=== PATIENT | male | born 1985 | race African-American/Black ===

== ENCOUNTER 2016-07-21 19:54 | Emergency (ER) | payer OTHER ==
[2016-07-21 20:17] VITALS: BP 134/87
[2016-07-21] MEDS ORDERED: ACETAMINOPHEN 325 MG TABLET PO ONE (20:22)
--- NOTE | 2016-07-21 20:26 | ER Document Report ---
ED Medical Screen (RME) - General Chief Complaint: Cough Stated Complaint: COUGH Mode of Arrival: Ambulatory Information source: Patient Notes: 31 y/o M presents to ED c/o generalized body aches, productive cough, and fever over the last two days. I have greeted and performed a rapid initial assessment of this patient. A comprehensive ED assessment and evaluation of the patient, analysis of test results and completion of the medical decision making process will be conducted by additional ED providers. TRAVEL OUTSIDE OF THE [place] IN LAST 30 DAYS: No Past Medical History - Social History Chew tobacco use (# tins/day): No Frequency of alcohol use: Occasional Drug Abuse: Marijuana Renal/ Medical History: Denies: Hx Peritoneal Dialysis Physical Exam - Vital signs Vitals: Temp Pulse Resp BP Pulse Ox 103.0 F H 80 12 134/87 H 97 07/21/16 20:15 07/21/16 20:15 07/21/16 20:15 07/21/16 20:15 07/21/16 20:15 - General General appearance: Alert In distress: None - Respiratory Respiratory status: No respiratory distress Breath sounds: Normal Course - Vital Signs Vital signs: Temp Pulse Resp BP Pulse Ox 103.0 F H 80 12 134/87 H 97 07/21/16 20:15 07/21/16 20:15 07/21/16 20:15 07/21/16 20:15 07/21/16 20:15
--- NOTE | 2016-07-21 22:52 | ER Document Report ---
ED General - General Chief Complaint: Cough Stated Complaint: COUGH Mode of Arrival: Ambulatory Notes: Patient is a 31-year-old male who presents with complaint of cough and fever. Patient says he had cough for last 3 days. Some congestion. Says he is coughing up phlegm. He said there is a little bit of black stuff no phlegm but he suspects that is from smoking and has had that before. No blood in his sputum. No recent troubles of the country. He is homosexual. He says he was recently seen at the health [facility]. He said he goes to routinely just get checked for sexually transmitted diseases. He last week he was checked and his needing gonorrhea swabs came back negative. They did put him on azithromycin for sepsis ureter look a little bit red. Patient says he had no symptoms at the time and no pain. They also checked him for HIV is best return Monday for the results of his HIV test. He's never had HIV and does not suspect that it would be positive this time. Patient denies any other recent illnesses or infections. No other complaints at this time. TRAVEL OUTSIDE OF THE [place] IN LAST 30 DAYS: No - Related Data Allergies/Adverse Reactions: No Known Allergies Allergy (Unverified 07/21/16 20:23) Past Medical History - General Information source: Patient - Social History Smoking Status: Current Every Day Smoker Chew tobacco use (# tins/day): No Frequency of alcohol use: Occasional Drug Abuse: Marijuana Family History: Reviewed & Not Pertinent Patient has suicidal ideation: No Patient has homicidal ideation: No Renal/ Medical History: Denies: Hx Peritoneal Dialysis Review of Systems - Review of Systems Notes: My Normal Review Basic REVIEW OF SYSTEMS: CONSTITUTIONAL : Fever EENT: congestion CARDIOVASCULAR: Denies chest pain. RESPIRATORY: Cough GASTROINTESTINAL: Denies abdominal pain. Denies nausea, vomiting, or diarrhea. Denies constipation. Last BM: GENITOURINARY: Denies difficulty urinating, painful urination, burning, frequency, or blood in urine. MUSCULOSKELETAL: Denies neck or back pain or joint pain or swelling. SKIN: Denies rash or skin lesions. NEUROLOGICAL: Denies altered mental status or loss of consciousness. Denies headache. Denies weakness or paralysis or loss of use of either side. Denies problems with gait or speech. Denies sensory or motor loss. ALL OTHER SYSTEMS REVIEWED AND NEGATIVE. Physical Exam - Vital signs Vitals: Temp Pulse Resp BP Pulse Ox 103 F H 80 12 134/87 H 97 07/21/16 20:00 07/21/16 20:00 07/21/16 20:00 07/21/16 20:00 07/21/16 20:00 - Notes Notes: General Appearance: Well nourished, alert, cooperative, no acute distress, no obvious discomfort. Very well-appearing. Vitals: reviewed, See vital signs table. Head: no swelling or tenderness to the head Eyes: PERRL, EOMI, Conjuctiva clear Mouth: No decreasd moisture Throat: No tonsillar inflammation, No airway obstruction, No lymphadenopathy Ears: Normal appearing tympanic membranes Neck: Supple, no neck tenderness, No thyromegaly Lungs: No wheezing, No rales, No rhonci, No accessory muscle use, good air exchange bilaterally. Heart: Normal rate, Regular rythm, No murmur, no rub Abdomen: Normal BS, soft, No rigidity, No abdominal tenderness, No guarding, no rebound, no abdominal masses, no organomegaly Genital: Normal per appearing external genitalia. No redness or inflammation around the urethral meatus. Extremities: strength 5/5 in all extremities, good pulses in all extremities, no swelling or tenderness in the extremities, no edema. Skin: warm, dry, appropriate color, no rash Neuro: speech clear, oriented x 3, normal affect, responds appropriately to questions. Course - Vital Signs Vital signs: Temp Pulse Resp BP Pulse Ox 98.8 F 80 12 134/87 H 97 07/21/16 22:47 07/21/16 20:15 07/21/16 20:15 07/21/16 20:15 07/21/16 20:15 - Transfer of Care Notes: 07/22/16 06:56 She is fever completely resolved. He looks well. Chest x-ray is negative. Suspect probably has a viral illness causes fever cough and congestion. I do not think this is a. Do with sexually transmitted disease being that his recent STD testing was negative. Encourage him to follow up closely with the health Department on Monday for reevaluation also for the results of his HIV testing. I encourage and return to ER immediately if he has recurrent worsening fevers, difficulty breathing, or feels unwell. Patient agrees with plan and will be discharged home. Dictation of this chart was performed using voice recognition software; therefore, there may be some unintended grammatical errors. Discharge - Discharge Clinical Impression: Cough Fever Qualifiers: Fever type: unspecified Qualified Code(s): R50.9 - Fever, unspecified Condition: Good Disposition: HOME, SELF-CARE Additional Instructions: Please return to the ER immediately if you develop worsening fevers not responding to Tylenol, difficulty breathing, coughing up of blood, or feel that your symptoms are worsening. Please follow up with the Health department on your HIV test results.
== END 2016-07-21 23:10 | disposition home or self-care (01) ==
LOC: ER 19:54
DX: R05 Cough (principal); R50.9 Fever, unspecified; F17.200 Nicotine dependence, unspecified, uncomplicated
CPT/HCPCS: 71020; 87804; 99283

== ENCOUNTER 2017-06-29 12:29 | Emergency (ER) | payer BC, OTHER ==
--- NOTE | 2017-06-29 14:46 | ER Document Report ---
ED General - General Chief Complaint: Abdominal Pain Stated Complaint: ABDOMINAL PAIN Time Seen by Provider: 06/29/17 14:41 Notes: The patient is a 32-year-old male who presents with 3 months of suprapubic pain , bilateral flank pain and dysuria. He went to the health department 2 months ago and his HIV, gonorrhea and chlamydia tests were negative. However, he did not want to pay the $60 for his urinalysis. He is still having a burning sensation and has not had any new sexual partners. Denies testicular pain, penile discharge, lesions, fevers, hematuria, right lower quadrant abdominal pain, diarrhea, constipation, nausea or vomiting. TRAVEL OUTSIDE OF THE [place] IN LAST 30 DAYS: No - Related Data Allergies/Adverse Reactions: No Known Allergies Allergy (Verified 06/29/17 12:30) Past Medical History - General Information source: Patient - Social History Smoking Status: Current Every Day Smoker Frequency of alcohol use: Occasional Drug Abuse: Marijuana Family History: Reviewed & Not Pertinent Patient has suicidal ideation: No Patient has homicidal ideation: No Renal/ Medical History: Denies: Hx Peritoneal Dialysis Review of Systems - Review of Systems Notes: REVIEW OF SYSTEMS: CONSTITUTIONAL: -fevers, -chills EENT: -eye pain, -difficulty swallowing, -nasal congestion CARDIOVASCULAR: -chest pain, -syncope. RESPIRATORY: -cough, -SOB GASTROINTESTINAL: +suprapubic abdominal pain, -nausea, -vomiting, -diarrhea GENITOURINARY: +dysuria, -hematuria MUSCULOSKELETAL: +back pain, -neck pain SKIN: -rash or skin lesions. HEMATOLOGIC: -easy bruising or bleeding. LYMPHATIC: -swollen, enlarged glands. NEUROLOGICAL: -altered mental status or loss of consciousness, -headache, - neurologic symptoms PSYCHIATRIC: -anxiety, -depression. ALL OTHER SYSTEMS REVIEWED AND NEGATIVE. Physical Exam - Vital signs Vitals: Temp Pulse Resp BP Pulse Ox 99.6 F 73 14 125/65 98 06/29/17 12:38 06/29/17 12:38 06/29/17 12:38 06/29/17 12:38 06/29/17 12:38 - Notes Notes: PHYSICAL EXAMINATION: GENERAL: Well-appearing, well-nourished and in no acute distress. HEAD: Atraumatic, normocephalic. EYES: Pupils equal round and reactive to light, extraocular movements intact, sclera anicteric, conjunctiva are normal. ENT: nares patent, oropharynx clear without exudates. Moist mucous membranes. NECK: Normal range of motion, supple without lymphadenopathy LUNGS: Breath sounds clear to auscultation bilaterally and equal. No wheezes rales or rhonchi. HEART: Regular rate and rhythm without murmurs ABDOMEN: Soft, nontender, normoactive bowel sounds. No guarding, no rebound. No masses appreciated. EXTREMITIES: Normal range of motion, no pitting or edema. No cyanosis. NEUROLOGICAL: Cranial nerves grossly intact. Normal speech, normal gait. Normal sensory and motor exams. PSYCH: Normal mood, normal affect. SKIN: Warm, Dry, normal turgor, no rashes or lesions noted. Course - Re-evaluation Re-evalutation: Patient appears well. He does not want to be retested for gonorrhea and chlamydia because he is not have any new partners. His urinalysis does not show any evidence of a UTI. Pt deferred the exam. Instructed him to use Pyridium for any dysuria and follow-up with urology. - Vital Signs Vital signs: Temp Pulse Resp BP Pulse Ox 99.6 F 73 14 125/65 98 06/29/17 12:38 06/29/17 12:38 06/29/17 12:38 06/29/17 12:38 06/29/17 12:38 - Laboratory Laboratory results interpreted by me: 06/29/17 14:40 Urine Ascorbic Acid 40 H Discharge - Discharge Clinical Impression: Dysuria Condition: Stable Disposition: HOME, SELF-CARE Additional Instructions: URINARY ANESTHETIC AGENT: You have been given a medication (Pyridium) for urinary tract discomfort. This medicine numbs the lining of the bladder and urethra, resulting in less pain, burning, and urgency. You may take it as needed, according to instructions. When the symptoms resolve, you can stop this medication (be sure to continue any other medications the doctor has given you). This medicine turns the urine a dark orange. It may stain underwear. Occasionally, it can cause nausea. Return for evaluation if there are any unexpected effects, such as itching, hives, or shortness of breath. FOLLOW-UP CARE: If you have been referred to a physician for follow-up care, call the physician s office for an appointment as you were instructed or within the next two days. If you experience worsening or a significant change in your symptoms, notify the physician immediately or return to the Emergency Department at any time for re-evaluation. Prescriptions: Phenazopyridine HCl [Pyridium 200 mg Tablet] 200 mg PO TID #15 tablet Referrals: IVAN KIM II, MD [[facility]] - Follow up as needed
[2017-06-29 15:22] LABS: APPEARANCE,URINE CLEAR; BILIRUBIN,URINE NEGATIVE (NEGATIVE); COLOR,URINE YELLOW; GLUCOSE, URINE NEGATIVE (NEGATIVE); KETONES,URINE NEGATIVE (NEGATIVE); LEUKOCYTE ESTERASE,URINE NEGATIVE (NEGATIVE); NITRITE,URINE NEGATIVE (NEGATIVE); PROTEIN,URINE NEGATIVE (NEGATIVE); URINE SPECIFIC GRAVITY 1.029; UROBILINOGEN,URINE NEGATIVE mg/dL (<2.0)
[2017-06-29] MEDS ORDERED: PHENAZOPYRIDINE HCL 200 MG TABLET PO ONE (15:50)
[2017-06-29 16:28] VITALS: BP 119/69
== END 2017-06-29 16:00 | disposition home or self-care (01) ==
LOC: ER 12:29
DX: R30.0 Dysuria (principal); R10.30 Lower abdominal pain, unspecified; F17.200 Nicotine dependence, unspecified, uncomplicated
CPT/HCPCS: 81001; 99284

== ENCOUNTER 2018-05-17 12:10 | Emergency (ER) | payer SELFPAY ==
[2018-05-17 12:22] VITALS: BP 114/76
--- NOTE | 2018-05-17 13:13 | ER Document Report ---
HPI - HPI Time Seen by Provider: 05/17/18 12:35 Pain Level: 3 Notes: Patient is an otherwise healthy 33-year-old male who presents with chief complaint of sore throat over the last 3 days. Patient denies any fever. Denies any other symptoms to include cough and congestion. - CONSTITUTIONAL Constitutional: DENIES: Fever, Chills - EENT EENT: REPORTS: Sore Throat. DENIES: Ear Pain, Eye problems - NEURO Neurology: DENIES: Headache, Weakness, Vision blurred, Dizzinesss / Vertigo - CARDIOVASCULAR Cardiovascular: DENIES: Chest pain - RESPIRATORY Respiratory: REPORTS: Coughing - x 3 days. DENIES: Trouble Breathing - GASTROINTESTINAL Gastrointestinal: DENIES: Abdominal Pain, Black / Bloody Stools - URINARY Urinary: DENIES: Dysuria, Urgency, Frequency - MUSCULOSKELETAL Musculoskeletal: DENIES: Extremity pain Past Medical History - General Information source: Patient - Social History Smoking Status: Current Every Day Smoker Chew tobacco use (# tins/day): No Frequency of alcohol use: Occasional Drug Abuse: Marijuana Family History: Reviewed & Not Pertinent Patient has suicidal ideation: No Patient has homicidal ideation: No - Medical History Medical History: Negative Renal/ Medical History: Denies: Hx Peritoneal Dialysis Surgical Hx: Negative - Immunizations Immunizations up to date: Yes Vertical Provider Document - CONSTITUTIONAL Notes: PHYSICAL EXAMINATION: GENERAL: Well-appearing, well-nourished and in no acute distress. HEAD: Atraumatic, normocephalic. EYES: Pupils equal round extraocular movements intact, conjunctiva are normal. ENT: Nares patent, no tonsillar swelling noted. Uvula midline, no evidence of [employer]AT[employer]. Oropharynx mildly erythematous with no exudates noted. NECK: Normal range of motion LUNGS: No respiratory distress Musculoskeletal: Normal range of motion NEUROLOGICAL: Normal speech, normal gait. PSYCH: Normal mood, normal affect. SKIN: Warm, Dry, normal turgor, no rashes or lesions noted. - INFECTION CONTROL TRAVEL OUTSIDE OF THE [place] IN LAST 30 DAYS: No Course - Re-evaluation Re-evalutation: Rapid strep positive. Patient given penicillin G IM. - Vital Signs Vital signs: Temp Pulse Resp BP Pulse Ox 98.3 F 58 L 16 114/76 98 05/17/18 12:21 05/17/18 12:21 05/17/18 12:21 05/17/18 12:21 05/17/18 12:21 Discharge - Discharge Clinical Impression: Strep throat Condition: Stable Disposition: HOME, SELF-CARE Additional Instructions: STREP THROAT: Your sore throat is due to the streptococcus germ (strep throat). Strep throat usually makes you feel quite ill with fever and aches, headache, swollen sore throat, and tender bumps under the angles of the jaw. Strep throat requires antibiotic treatment. Although the sore throat may go away by itself, complications such as rheumatic fever, kidney disease, or throat abscess can occur. We usually prescribe antibiotics by mouth. Be sure to take the medicine until it's gone. If you stop early, the strep may come back. If you are vomiting, are severely ill, or can't remember to take pills, we can give you an antibiotic shot. Take acetaminophen or ibuprofen for pain and fever. Sip frequent clear liquids, or use popsicles or ice chips. Anesthetic sprays or lozenges may help. Make sure the air in the room is not too dry. Avoid using decongestants or antihistamines. Call the doctor if there is no improvement in three days, or if you have difficulty breathing, increasing throat pain, high fever, rash, or frequent vomiting. FOLLOW-UP CARE: If you have been referred to a physician for follow-up care, call the physician s office for an appointment as you were instructed or within the next two days. If you experience worsening or a significant change in your symptoms, notify the physician immediately or return to the Emergency Department at any time for re-evaluation. You were treated today with intramuscular penicillin. This means you do not need to get a prescription filled. Drink plenty of fluids. Rest over the next couple of days. You will continue to be contagious until the antibiotics have been your system for 24 hours. Take Tylenol or ibuprofen for any pain. Forms: Return to Work
[2018-05-17] MEDS ORDERED: PENICILLIN G BENZATHINE 1.2 MILLION UNIT/2 ML DISP.SYRIN IM ONE (13:15)
== END 2018-05-17 13:30 | disposition home or self-care (01) ==
LOC: ER 12:10
DX: J02.0 Streptococcal pharyngitis (principal); R05 Cough
CPT/HCPCS: 99283; 96372; 87880; J0561

== ENCOUNTER 2018-09-29 02:35 | Emergency (ER) | payer OTHER ==
[2018-09-29] MEDS ORDERED: METHOCARBAMOL 750 MG TABLET PO ONE (03:33)
[2018-09-29 03:48] VITALS: BP 122/84
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
== END 2018-09-29 03:50 | disposition home or self-care (01) ==
LOC: ER 02:35
DX: S16.1XXA Strain of muscle, fascia and tendon at neck level, initial encounter (principal); S29.012A Strain of muscle and tendon of back wall of thorax, initial encounter; R25.2 Cramp and spasm; V43.63XA Car passenger injured in collision with pick-up truck in traffic accident, initial encounter; F17.210 Nicotine dependence, cigarettes, uncomplicated
CPT/HCPCS: 99283; J3490

== ENCOUNTER 2019-11-17 12:43 | Emergency (ER) | payer OTHER ==
[2019-11-17 12:48] VITALS: BP 119/71
[2019-11-17] MEDS ORDERED: DIPH/PERTUSS(ACELL)/TETANUS VAC/PF 0.5 ML SYR (>=10YO) IM ONE (12:59)
[2019-11-17] MEDS ORDERED: CEPHALEXIN 500 MG CAPSULE PO ONE (12:59)
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
--- NOTE | 2019-11-17 13:32 | RADIOLOGY REPORT (SQ) ---
EXAM DESCRIPTION: HAND RIGHT 3 VIEWS IMAGES COMPLETED DATE/TIME: 11/17/2019 1:16 pm REASON FOR STUDY: right hand pain/swelling/fall COMPARISON: None. EXAM PARAMETERS: NUMBER OF VIEWS: Three views. TECHNIQUE: AP, lateral and oblique radiographic images acquired of the right hand. LIMITATIONS: None. FINDINGS: MINERALIZATION: Normal. BONES: No acute fracture or dislocation. No worrisome bone lesions. JOINTS: No effusion. SOFT TISSUES: No significant soft tissue swelling. No radiopaque foreign body. OTHER: No other significant finding. IMPRESSION: NO FRACTURE. TECHNICAL DOCUMENTATION: JOB ID: [id number] [place]-72 2010 [employer]- All Rights Reserved Reading location - IP/workstation name: [email or web address]
== END 2019-11-17 13:39 | disposition home or self-care (01) ==
LOC: ER 12:43
DX: S60.311A Abrasion of right thumb, initial encounter (principal); M79.641 Pain in right hand; M79.89 Other specified soft tissue disorders; W19.XXXA Unspecified fall, initial encounter; F17.200 Nicotine dependence, unspecified, uncomplicated
CPT/HCPCS: 90471; 90715; 99283